=== PATIENT | female | born 1980 | race Caucasian/White ===

== ENCOUNTER 2018-12-04 18:15 | Emergency (ER) | payer OTHER ==
[2018-12-04 18:28] VITALS: TEMP 97.8; BMI 31.1
--- NOTE | 2018-12-04 18:34 | PDOC ---
History of Present Illness - General Chief Complaint: Syncope/Near Syncope Stated Complaint: SYNCOPE Time Seen by Provider: 12/04/18 18:33 History Source: Patient Exam Limitations: No Limitations - History of Present Illness Initial Comments: Pt is a 38 yo F, with PMH of anemia 2/2 to fibroids and hypothyroidism, who is presenting after a syncopal episode. Pt states she was at the [facility] just prior to arrival, when she had a syncopal episode. Pt states since about 2 pm today, she noticed a b/l headache around her temples, and felt light-headed. Right before the syncopal episode, she noticed blurry vision, but has not had recent vision changes. Pt also states she had nasal congestion and cough about 2 weeks ago, and has not been sleeping as long as usual lately. Her last menstrual period was heavier than usual for her. BGM on the ambulance was 69. Pt denies any recent fevers/chills, chest pain, palpitations, SOB, nausea/ vomiting, abdominal pain, urinary symptoms, diarrhea/constipation, or leg swelling. Social: Pt denies any cigarette, alcohol, or drug use. Pt denies any recent travel or sick contacts. Surgical: cholecystectomy, myomectomy. Family: mother - CHRIS 39. 12/04/18 21:48 Past History - Travel Traveled outside of the country in the last 30 days: No Close contact w/someone who was outside of country & ill: No - Past Medical History Allergies/Adverse Reactions: Allergies Allergy/AdvReac Type Severity Reaction Status Date / Time No Known Allergies Allergy Unverified 12/04/18 18:28 Home Medications: Ambulatory Orders Levothyroxine [Synthroid -] 200 mcg PO DAILY 12/04/18 Pnv No.121/Iron/Folic Acid [ Multivitamin Tablet] 1 each PO DAILY Anemia: Yes COPD: No Diabetes: No HTN: No Hypercholesterolemia: No Thyroid Disease: Yes (hypothyroid) Other medical history: h/o fibroid, endometriosis - Surgical History Cholecystectomy: Yes GI Surgery: No Neurologic Surgery: No - Suicide/Smoking/Psychosocial Hx Smoking History: Current some day smoker Information on smoking cessation initiated: No Hx Alcohol Use: No Drug/Substance Use Hx: No Review of Systems - Review of Systems Able to Perform ROS?: Yes Is the patient limited Cymro proficient: No Constitutional: Yes: Weight Stable. No: Chills, Diaphoresis, Fever, Loss of Appetite, Weakness HEENTM: No: Blurred Vision, Recent change in vision, Double Vision, Nose Congestion, Hearing Loss, Throat Swelling Respiratory: No: Cough, Orthopnea, Shortness of Breath Cardiac (ROS): Yes: See HPI, Lightheadedness, Syncope. No: Chest Pain, Edema, Irregular Heart Rate, Palpitations, Chest Tightness ABD/GI: No: Constipated, Diarrhea, Nausea, Poor Appetite, Poor Fluid Intake, Vomiting : No: Burning, Dysuria, Frequency, Flank Pain, Pain, Urgency Musculoskeletal: No: Back Pain, Joint Pain, Muscle Weakness Integumentary: No: Rash Neurological: Yes: Headache. No: Numbness, Paresthesia, Seizure, Weakness, Unsteady Gait, Dizziness Psychiatric: Yes: Sleep Pattern Change (not sleeping as much lately). No: Change in Appetite Endocrine: No: Increased Urine, Change in Weight Hematologic/Lymphatic: Yes: Anemia (fibroids, heavy menstrual flow). No: Blood Clots, Easy Bleeding, Easy Bruising All Other Systems: Reviewed and Negative *Physical Exam - Vital Signs Last Vital Signs Temp Pulse Resp BP Pulse Ox 97.8 F 71 17 162/99 100 12/04/18 18:25 12/04/18 18:25 12/04/18 18:25 12/04/18 18:25 12/04/18 18:25 - Physical Exam General Appearance: Yes: Nourished, Appropriately Dressed, Obese. No: Apparent Distress HEENT: positive: EOMI, IDA, Normal ENT Inspection, Normal Voice, TMs Normal, Pharynx Normal, Hearing Grossly Normal. negative: Scleral Icterus (R), Scleral Icterus (L), Pharyngeal Erythema, Tonsillar Exudate, Tonsillar Erythema, Nasal Congestion, Rhinorrhea, Sinus Tenderness, TM Bulging, TM Dull, TM Erythema Neck: positive: Trachea midline, Normal Thyroid, Supple. negative: Tender, Rigid, Lymphadenopathy (R), Lymphadenopathy (L) Respiratory/Chest: positive: Lungs Clear, Normal Breath Sounds. negative: Chest Tender, Respiratory Distress, Accessory Muscle Use, Crackles, Wheezing Cardiovascular: positive: Regular Rhythm, Regular Rate, S1, S2. negative: Edema , JVD, Murmur Vascular Pulses: Carotid (R): 4+, Carotid (L): 4+ Gastrointestinal/Abdominal: positive: Normal Bowel Sounds, Flat, Soft. negative : Tender, Organomegaly, Pulsatile Mass, Distended, Guarding Rectal Exam: positive: deferred Lymphatic: negative: Adenopathy, Tenderness Musculoskeletal: positive: Normal Inspection. negative: CVA Tenderness Extremity: positive: Normal Capillary Refill, Normal Inspection, Normal Range of Motion, Pelvis Stable. negative: Tender, Pedal Edema Integumentary: positive: Normal Color, Dry, Warm. 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 negative: EOM Palsy, Facial Droop , Numbness, Sensory Deficit, Finger to Nose Moderate Sedation - Procedure Monitoring Vital Signs: Procedure Monitoring Vital Signs Temperature 97.8 F 12/04/18 18:25 Pulse Rate 71 12/04/18 18:25 Respiratory Rate 17 12/04/18 18:25 Blood Pressure 162/99 12/04/18 18:25 O2 Sat by Pulse Oximetry (%) 100 12/04/18 18:25 ED Treatment Course - LABORATORY CBC & Chemistry Diagram: 12/04/18 19:07 12/04/18 19:07 Medical Decision Making - Medical Decision Making Pt was seen at bedside, also will be seen by attending Dr. Ghotra. Pt presenting after a syncopal episode. Pt states she was at the [facility] just prior to arrival, when she had a syncopal episode. Pt states since about 2 pm today, she noticed a b/l headache around her temples, and felt light-headed. Right before the syncopal episode, she noticed blurry vision, but has not had recent vision changes. Pt also states she had nasal congestion and cough about 2 weeks ago, and has not been sleeping as long as usual lately. Her last menstrual period was heavier than usual for her. BGM on the ambulance was 69. Pt denies any recent fevers/chills, chest pain, palpitations, SOB, nausea/vomiting, abdominal pain, urinary symptoms, diarrhea/constipation, or leg swelling. HTN 162/99, HR 71, O2 100% on RA. PE benign. Oral mucosa moist, eyes PERRLA. forest firefighter intact. Heart and lung sounds clear. No abdominal or CVA tenderness. Considering vasovagal episode vs hypoglycemic episode vs anemia vs electrolyte imbalance vs . Ordered work-up including CBC, CMP, TSH, free T4, serum , ECG. Provided 650 mg PO tylenol and juice for improvement of headache and hypoglycemia. Will continue to reassess pt and monitor for symptomatic improvement and will re -check BP. 12/04/18 19:17 ECG: NSR. HR 74, intervals WNL. TWI in III (no prior for comparison). No significant ST segment changes, no heart block. 12/04/18 19:40 CBC WNL, H/H stable. CMP generally WNL. Glucose improved to 94, pt was also provided orange juice which she tolerated. TSH and T4 generally WNL, T4 borderline high. Serum negative. Repeat vitals improved, BP 138/90, HR 71. Pt states headache improved after tylenol and is feeling much better. Pt has tolerated PO intake in the department. 12/04/18 20:16 Labs normal, no obvious explanation for syncopal episode. Considering pt family history (mother with stroke in 30s), ordered non-contrast head CT scan to r/o bleed. 12/04/18 20:[address] (preliminary read in ER with Dr. Ghotra) showed no acute bleed. Providing 500 mL IV NS, as pt still feeling mildly light-headed. 12/04/18 20:45 Pt states feeling much better after fluids. CT scan of head: normal CT. Considering normal lab results and imaging, pt can be discharged to home with follow-up. Pt advised to follow-up with PCP in 1-2 days and has been referred to neurology. Strict return precautions provided with pt understanding. 12/04/18 21:30 *DC/Admit/Observation/Transfer Diagnosis at time of Disposition: Syncope Qualifiers: Syncope type: unspecified Qualified Code(s): R55 - Syncope and collapse - Discharge Dispostion Disposition: HOME Condition at time of disposition: Improved Decision to Admit order: No - Referrals Referrals: Travis Carrillo [Primary Care Provider] - Rodolfo Willams MD [Staff Physician] - - Patient Instructions Printed Discharge Instructions: DI for Syncope in Adults (Fainting) Additional Instructions: You were seen in the ER today after a syncopal episode. The results of your labs and imaging today were normal. Please follow-up with your primary care doctor and neurology (Dr. Willams) within 1-2 days to discuss your visit and make sure your symptoms have improved. Please return to the ER if you have any worsening pain, development of fevers or chills, loss of consciousness, vision changes, confusion, inability to tolerate food or fluids, or any other concerns. - Post Discharge Activity
[2018-12-04] MEDS ORDERED: ACETAMINOPHEN 325 MG TABLET (FP) PO ONE (19:18)
--- NOTE | 2018-12-04 19:22 | PDOC ---
Attending Attestation - HPI HPI: 12/04/18 19:23 The patient is 38 year old female with a significant PMH of fibroids, anemia, and hypothyroidism presenting to the ER s/p a syncopal episode earlier today. [place] when she had witnessed syncopal episode and fell backwards. Patient admits to head trauma. Patient returned to her baseline after a few minutes. LMP was 11/23/18, which was heavier than normal for her. Patient denies any recent URI symptoms. Patient has had one other syncopal episode in the past, when she was found to be anemic. The patient denies chest pain, shortness of breath, headache and dizziness. Denies fever, chills, nausea, vomit, diarrhea and constipation. Denies dysuria, frequency, urgency and hematuria. Allergies: NKDA Surgeries: None reported. Social Hx: Smokes cigarettes occasionally. No reported drug or alcohol use. - Physicial Exam PE: 12/04/18 20:51 ADULT EXAM GENERAL: Awake, alert, and fully oriented, in no acute distress HEAD: No signs of trauma EYES: PERRLA, EOMI, sclera anicteric, conjunctiva clear ENT: Auricles normal inspection, hearing grossly normal, nares patent, oropharynx clear without exudates. Moist mucosa NECK: Normal ROM, supple, no lymphadenopathy, JVD, or masses LUNGS: Breath sounds equal, clear to auscultation bilaterally. No wheezes, and no crackles HEART: Regular rate and rhythm, normal S1 and S2, no murmurs, rubs or gallops ABDOMEN: Soft, nontender, normoactive bowel sounds. No guarding, no rebound. No masses EXTREMITIES: Normal range of motion, no edema. No clubbing or cyanosis. No cords, erythema, or tenderness NEUROLOGICAL: Cranial nerves II through XII grossly intact. Normal speech, normal gait SKIN: Warm, Dry, normal turgor, no rashes or lesions noted. <Annette Gee - Last Filed: 12/04/18 20:51> - Resident Resident Name: Jennifer Morales - ED Attending Attestation I have performed the following: I have examined & evaluated the patient, The case was reviewed & discussed with the resident, I agree w/resident's findings & plan - Medical Decision Making 12/04/18 21:33 Patient Name: CLAUDE MADRID History: 38-year-old female with lightheadedness . Preliminary report. Comparison: None Procedure: CT scan head, dated December 04, 2018 . Axial images obtained followed by coronal and sagittal reconstructions. Study performed unenhanced. Findings: Visualized portion of the paranasal sinuses, mastoid air cells and external ear canals are air filled. The ventricular system is of normal size shape and configuration. There is no evidence of an intra-or extra-axial mass lesion, mass-effect or bleed. Hernandez-white differentiation is maintained. No hyperdense vessel sign identified. Corpus callosum and craniocervical junction normal in appearance. Impression: Normal CT scan of the head, unenhanced 12/05/18 06:14 Pt has normal exam, normal labs and normal head CT. SHe will be discharged and asked to follow with neuro as an outpatient. <Vivian Ghotra - Last Filed: 12/05/18 06:14>
[2018-12-04] MEDS ORDERED: ACETAMINOPHEN 325 MG TABLET (FP) ONE (19:32)
[2018-12-04 19:39] LABS: BASO % 0.8 % (0-2.0); EOS % 1.4 % (0-4.5); HEMATOCRIT 34.6 % (32.4-45.2); HEMOGLOBIN 11.2 GM/dL (10.7-15.3); LYMPH % 30.2 % (8-40); MCH 24.1 pg (25.7-33.7); MCHC 32.4 g/dl (32.0-36.0); MEAN CELL VOLUME 74.5 fl (80-96); MONO % 10.3 % (3.8-10.2); NEUT % 57.3 % (42.8-82.8); PLATELET COUNT 213 K/MM3 (134-434); RBC 4.65 M/mm3 (3.60-5.2); RDW 18.5 % (11.6-15.6); WHITE BLOOD COUNT 6.3 K/mm3 (4.0-10.0)
[2018-12-04 20:01] LABS: ALBUMIN 4.1 g/dl (3.4-5.0); ALK PHOS 73 U/L (45-117); ANION GAP 7 MMOL/L (8-16); BILIRUBIN,TOTAL 0.2 mg/dL (0.2-1); BLOOD UREA NITROGEN 10 mg/dL (7-18); CALCIUM 9.7 mg/dL (8.5-10.1); CHLORIDE 105 mmol/L (98-107); CO2 25 mmol/L (21-32); CREATININE 0.8 mg/dL (0.55-1.3); GLUCOSE,RANDOM 94 mg/dL (74-106); POTASSIUM 4.6 mmol/L (3.5-5.1); SGOT/AST 39 U/L (15-37); SGPT/ALT 41 U/L (13-61); SODIUM 137 mmol/L (136-145); TOT PROT 8.6 g/dl (6.4-8.2)
[2018-12-04 20:19] VITALS: BP 138/90; PULSE 70
[2018-12-04] MEDS ORDERED: SODIUM CHLORIDE 0.9% 500 ML INFUS.BAG IV ONE (20:48)
--- NOTE | 2018-12-05 08:41 | EKG ---
Test Reason : Blood Pressure : / mmHG Vent. Rate : 074 BPM Atrial Rate : 074 BPM P-R Int : 152 ms QRS Dur : 098 ms QT Int : 408 ms P-R-T Axes : 027 001 019 degrees QTc Int : 452 ms NORMAL SINUS RHYTHM NORMAL ECG NO PREVIOUS ECGS AVAILABLE Confirmed by NIKO SAVAGE, BRIANNA ([id number]) on 12/05/2018 8:41:11 AM Referred By: Confirmed By:BRIANNA POPE MD
== END 2018-12-04 21:40 | disposition home or self-care (01) ==
LOC: JER 18:15
DX: R55 Syncope and collapse (principal); D64.9 Anemia, unspecified; E03.9 Hypothyroidism, unspecified
CPT/HCPCS: 36415; 70450-TC; 80053; 84439; 84443; 84703; 85025; 93005; 93010; 99283-25